=== PATIENT | male | born 1960 | race Caucasian/White ===

== ENCOUNTER 2016-08-24 12:44 | Emergency (ER) | payer OTHER ==
[2016-08-24 14:17] VITALS: BP 149/74
[2016-08-24] MEDS ORDERED: Diphtheria,Pertussis(Acell),Tetanus Vaccine 0.5 ML SDV IM ONE (14:47)
[2016-08-24] MEDS ORDERED: Bacitracin Oint 1 GM U/D Packet TOP ONE (14:49)
[2016-08-24] MEDS ORDERED: Lidocaine 1% with EPINEPHrine 1:100,000 50 ML MDV INFILT ONE (14:49)
--- NOTE | 2016-08-24 14:54 | EDM.PDOC ---
ED HPI GENERAL MEDICAL PROBLEM - General Chief Complaint: Laceration Stated Complaint: CUT FINGER ON TABLE SAW Time Seen by Provider: 08/24/16 14:13 Source of Information: Reports: Patient History Limitations: Reports: No Limitations - History of Present Illness INITIAL COMMENTS - FREE TEXT/NARRATIVE: 55 yo male presents to ER with laceration to the tip of his left 2nf digit. He was cutting a piece of wood on table saw and wood kicked finger into blade. Last tetanus was 10 years ago. generally healthy. - Related Data Allergies Allergy/AdvReac Type Severity Reaction Status Date / Time No Known Allergies Allergy Verified 08/24/16 14:40 Home Meds: Home Meds Gabapentin [Neurontin] 08/24/16 [History] Sertraline [Zoloft] 08/24/16 [History] buPROPion [Wellbutrin] 08/24/16 [History] Past Medical History Musculoskeletal History: Reports: Neck Pain, Chronic - Past Surgical History Musculoskeletal Surgical History: Reports: Shoulder Surgery Social & Family History - Tobacco Use Smoking Status *Q: Never Smoker ED ROS GENERAL - Review of Systems Review Of Systems: See Below Constitutional: Denies: Fever, Chills Respiratory: Denies: Shortness of Breath, Wheezing Cardiovascular: Denies: Chest Pain ED EXAM, SKIN/RASH Exam: See Below Exam Limited By: No Limitations General Appearance: Alert, WD/WN, No Apparent Distress Respiratory/Chest: No Respiratory Distress Skin: Warm, Dry, Intact, Other (1.5 cm laceration to the tip of 2nd digit.) ED SKIN PROCEDURES - Laceration/Wound Repair Left Distal Finger Lac/Wound length In cm: 1 Appearance: Superficial, Subcutaneous Distal NVT: Neuro & Vascular Intact Anesthetic Type: Local Local Anesthesia - Lidocaine (Xylocaine): 1% With EPI Local Anesthetic Volume: 3cc Skin Prep: Chlorhexidine (Hibiciens), Saline, Sterile Drape Exploration/Debridement/Repair: Wound Explored, in a Bloodless Field, Explored to Base, Minimal Debridement, No Foreign Material Found, Wound Margins Revised Closed with: Sutures Suture Size: 4-0 # of Sutures: 7 Suture Type: Nylon, Interrupted, Simple Course - Vital Signs Last Recorded V/S: Last Vital Signs Temp 35.9 C 08/24/16 15:08 Pulse 60 08/24/16 15:08 Resp 15 08/24/16 15:08 BP 149/74 H 08/24/16 15:08 Pulse Ox 98 08/24/16 15:08 - Orders/Labs/Meds Orders: Active Orders 24 hr Category Date Time Status Vaccines to be Administered [RC] PER UNIT ROUTINE Care 08/24/16 14:47 Active Fingers Second Digit Lt F1 [CR] Stat Exams 08/24/16 14:48 Taken Meds: Medications Discontinued Medications Generic Name Dose Route Start Last Admin Trade Name Cristhian PRN Reason Stop Dose Admin Bacitracin 1 dose 08/24/16 14:49 08/24/16 15:44 Bacitracin Oint 1 Gm TOP 08/24/16 14:50 1 dose ONETIME ONE Administration Diphtheria/Tetanus/Acell Pertussis 0.5 ml 08/24/16 14:47 08/24/16 15:44 Adacel IM 08/24/16 14:48 0.5 ml .ONCE ONE Administration Lidocaine/Epinephrine 5 ml 08/24/16 14:49 08/24/16 15:44 Xylocaine 1% With Epinephrine 1:100,000 INFILT 08/24/16 14:50 5 ml ONETIME ONE Administration - Re-Assessments/Exams Free Text/Narrative Re-Assessment/Exam: 08/24/16 15:58 laceration repaired without difficulty. wound edges revised to facilitate approximation. wound care discussed and pain management of tylenol 1000 mg and ibuprofen 600 alternating every 6 hours along with ice and elevation. Departure - Departure Time of Disposition: 15:50 Disposition: Home, Self-Care 01 Condition: Good Clinical Impression: Laceration of finger of left hand Qualifiers: Encounter type: initial encounter Finger: index finger Damage to nail status: with damage Foreign body presence: without foreign body Qualified Code(s): S61.311A - Laceration without foreign body of left index finger with damage to nail, initial encounter - Discharge Information Instructions: Sutured Wound Care, [id number] Referrals: PCP,None [Primary Care Provider] - Forms: ED Department Discharge Additional Instructions: sutures out in 9 days ice for pain control keep dry for 24 hours thereafter wash with warm soapy water and keep covered observe for signs of infection - fire engine red, purulent drainage, or increase in pain - My Orders Last 24 Hours: My Active Orders 08/24/16 14:47 Vaccines to be Administered [RC] PER UNIT ROUTINE 08/24/16 14:48 Fingers Second Digit Lt F1 [CR] Stat - Assessment/Plan Last 24 Hours: My Active Orders 08/24/16 14:47 Vaccines to be Administered [RC] PER UNIT ROUTINE 08/24/16 14:48 Fingers Second Digit Lt F1 [CR] Stat
--- NOTE | 2016-08-26 09:29 | CR ---
Fingers Second Digit Lt F1 HISTORY: Trauma COMPARISON: None FINDINGS: Soft tissue injury to the distal aspect of the left finger. No fracture or foreign body se en.
== END 2016-08-24 16:30 | disposition home or self-care (01) ==
LOC: JP.ED 12:44
DX: S61.311A Laceration without foreign body of left index finger with damage to nail, initial encounter (principal); W22.8XXA Striking against or struck by other objects, initial encounter
CPT/HCPCS: 12001; 73140; 90471; 90715; 99283; A4217; 99282-25

== ENCOUNTER 2021-07-21 13:51 | Emergency (ER) | payer OTHER ==
[2021-07-21 14:08] VITALS: BP 181/90; PULSE 72
[2021-07-21] MEDS ORDERED: Acetaminophen 325 MG Tab PO ONE (14:27)
[2021-07-21 15:09] LABS: ESTIMATED GFR > 60 (>60)
== END 2021-07-21 16:21 | disposition home or self-care (01) ==
LOC: JP.ED 13:51
DX: S20.364A Insect bite (nonvenomous) of middle front wall of thorax, initial encounter (principal); W57.XXXA Bitten or stung by nonvenomous insect and other nonvenomous arthropods, initial encounter
CPT/HCPCS: 36415; 71046; 80053; 83605; 84145; 84484; 85025; 99283; A9270